=== PATIENT | male | born 1960 | race Hispanic/Latino ===

== ENCOUNTER 2017-10-02 23:03 | Emergency (ER) | payer OTHER ==
[~2017-10-02] VITALS: Ht 162.6 cm; Wt 110.7 kg
[2017-10-02] MEDS ORDERED: ASPIRIN 81 MG CHEW TAB PO ONE (23:30)
[2017-10-02 23:42] LABS: BASOPHILS % 0.5 % (0.0-1.0); EOSINOPHILS # (AUTO) 0.5 (0.0-0.4); EOSINOPHILS % 9.4 % (0.0-6.0); HEMATOCRIT 37.7 % (38.2-49.6); HEMOGLOBIN 13.7 g/dL (14.0-18.0); LYMPHOCYTES % 35.8 % (18.0-39.1); MEAN CORPUSCULAR HEMOGLOBIN 33.3 pg (28-32); MEAN CORPUSCULAR HGB CONC 36.3 g/dL (31-35); MEAN CORPUSCULAR VOLUME 91.7 fL (81-99); MONOCYTES # (AUTO) 0.7 (0.2-0.8); MONOCYTES % 12.9 % (4.4-11.3); NEUTROPHILS # (AUTO) 2.3 (2.1-6.9); NEUTROPHILS % 41.2 % (38.7-80.0); PLATELET COUNT 58 x10e3/uL (140-360); RED BLOOD COUNT 4.11 x10e6/uL (4.3-5.7); RED CELL DISTRIBUTION WIDTH 14.2 % (11.7-14.4)
[2017-10-03 00:02] LABS: ALANINE AMINOTRANSFERASE 32 IU/L (0-55); ALBUMIN 2.7 g/dL (3.5-5.0); ALBUMIN/GLOBULIN RATIO 0.6 (0.8-2.0); ALKALINE PHOSPHATASE 226 IU/L (40-150); ANION GAP 10.1 mmol/L (8-16); BLOOD UREA NITROGEN 20 mg/dL (7-26); BUN/CREATININE RATIO 22 (6-25); CALCIUM 8.5 mg/dL (8.4-10.2); CARBON DIOXIDE 25 mmol/L (22-29); CHLORIDE 104 mmol/L (98-107); CREATINE KINASE 210 IU/L (30-200); CREATININE, SERUM 0.89 mg/dL (0.72-1.25); EST GLOMERULAR FILTRATION RATE > 60 ML/MIN (60-); GLUCOSE 141 mg/dL (74-118); POTASSIUM 4.1 mmol/L (3.5-5.1); SODIUM 135 mmol/L (136-145)
--- NOTE | 2017-10-03 01:19 | Diagnostic Imaging Report ---
CHEST SINGLE (PORTABLE), 10/02/2017 11:17 PM Technique: CHEST SINGLE (PORTABLE) Comparison: None available. Clinical history: Cough Findings: See Impression Impression: 1. Normal cardiomediastinal silhouette. 2. Subtle left lower lobe opacities, which could be related to portable technique or developing pneumonia. Recommend follow-up upright PA and lateral. 3. No effusion or pneumothorax. Signed by: Dr Lia Jorgensen MD on 10/03/2017 1:15 AM
[2017-10-03 01:57] VITALS: BP 174/90
== END 2017-10-03 02:03 | disposition home or self-care (01) ==
LOC: ER 23:03
DX: R07.89 Other chest pain (principal); J15.9 Unspecified bacterial pneumonia; K74.60 Unspecified cirrhosis of liver; Z87.891 Personal history of nicotine dependence
CPT/HCPCS: 36415; 71045; 80053; 82550; 82553; 84484; 85025; 93005; 99284